=== PATIENT | male | born 1995 | race Caucasian/White ===

== ENCOUNTER 2020-10-22 10:20 | Emergency (ER) | payer BC, OTHER ==
[2020-10-22] MEDS ORDERED: Proparacaine 0.5% Ophth Soln 15 ML Bottle EYELF ONE (10:32)
[2020-10-22] MEDS ORDERED: Fluorescein 1 MG Ophth Strip EYELF ONE (10:33)
== END 2020-10-22 11:01 | disposition home or self-care (01) ==
LOC: VM.ED 10:20
DX: H10.9 Unspecified conjunctivitis (principal); Z91.030 Bee allergy status
CPT/HCPCS: 99283